=== PATIENT | male | born 1970 | race Caucasian/White ===

== ENCOUNTER 2023-10-23 08:13 | Day surgery (SDC) | payer OTHER ==
[2023-10-14 15:45] VITALS: BMI 31.7
[2023-10-23] MEDS ORDERED: LIDOCAINE HCL/EPINEPHRINE/PF 20 ML VIAL ONE (09:39)
[2023-10-23] MEDS ORDERED: BUPIVACAINE HCL/PF 0.25% (2.5MG/ML) 10 ML VIAL ONE (09:39)
[2023-10-23] MEDS ORDERED: LIDOCAINE 1%/EPI 1:100000 (50 ML MULTI DOSE VIAL) ONE (09:40)
[2023-10-23] MEDS ORDERED: MIDAZOLAM HCL 2 MG/2 ML SINGLE DOSE VIAL ONE ×3 (09:46→11:36)
[2023-10-23] MEDS ORDERED: FENTANYL CITRATE/PF 50 MCG/ML VIAL ONE (09:46)
[2023-10-23] MEDS ORDERED: DEXAMETHASONE SOD PHOSPHATE/PF 10 MG/ML SDV ONE (09:46)
[2023-10-23] MEDS ORDERED: ROPIVACAINE HCL 0.5% 30ML VIAL ONE (09:46)
[2023-10-23] MEDS ORDERED: ceFAZolin SODIUM 1 GM VIAL ONE (10:31)
[2023-10-23] MEDS ORDERED: ONDANSETRON 4 MG/2 ML VIAL ONE (10:31)
[2023-10-23] MEDS ORDERED: DEXAMETHASONE SOD PHOSPHATE 4 MG/1 ML VIAL ONE (10:31)
[2023-10-23] MEDS ORDERED: PROPOFOL 20 ML ONE ×2 (10:46→11:39)
[2023-10-23 13:17] VITALS: RESP 18; TEMP 97.4
[2023-10-23 13:51] VITALS: BP 120/66; PULSE 72
== END 2023-10-23 13:51 | disposition home or self-care (01) ==
LOC: FASU 08:13
PROVIDERS: ATTEND Orthopaedic Surgery
PROC: 0LS34ZZ Reposition Right Upper Arm Tendon, Percutaneous Endoscopic Approach (ICD-10-PCS; principal; 2023-10-23 10:49)
PROC: 0RNJ4ZZ Release Right Shoulder Joint, Percutaneous Endoscopic Approach (ICD-10-PCS; 2023-10-23 10:49)
DX: S46.011D Strain of muscle(s) and tendon(s) of the rotator cuff of right shoulder, subsequent encounter (principal); M75.21 Bicipital tendinitis, right shoulder; M75.51 Bursitis of right shoulder; M65.811 Other synovitis and tenosynovitis, right shoulder; S43.431D Superior glenoid labrum lesion of right shoulder, subsequent encounter; M75.01 Adhesive capsulitis of right shoulder; X58.XXXD Exposure to other specified factors, subsequent encounter
CPT/HCPCS: 88304-TC; C1713